=== PATIENT | female | born 1970 | race Caucasian/White ===

== ENCOUNTER 2016-08-21 07:00 | Day surgery (SDC) | payer BC, OTHER ==
[2016-08-17 10:38] VITALS: BMI 25.0
[2016-08-21] MEDS ORDERED: CEFAZOLIN 2 GM in DEXTROSE 5%-WATER - 100 ML IVPB ONE (08:36)
--- NOTE | 2016-08-21 08:43 | HP ---
Past Medical History - Primary Care Physician PCP:: Gregory Lopez - Admission Chief Complaint: 45yo P0010 with menometrorrhagia and dysmenorrhea admitted for total laparoscopic hysterectomy and cystoscopy. History of Present Illness: Severe menorrhagia and dysmenorrhea, suspected adenomyosis. 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: Alzheimer's, CVA, Dementia, Migraine, Multiple Sclerosis, Peripheral Neuropathy, Parkinson's, Seizure, Syncope, TIA, Vertigo, Other Cardiovascular: No: AFIB, Aneurysm, Aortic Insufficiency, Aortic Stenosis, CAD, CHF, Deep Vein Thrombosis, HTN, Hyperlipdemia, [place], Mitral Insufficiency, Mitral Stenosis, Murmur, Pulmonary Hypertension, Other Pulmonary: No: Asthma, Bronchitis, Cancer, COPD, O2 Dependent, Pneumonia, Previously Intubated, Pulmonary Embolus, Pulmonary Fibrosis, Sleep Apnea, Other Gastrointestinal: No: Ascites, Cancer, Constipation, Crohn's Disease, Diverticulitis, Diverticulosis, Esophageal Varices, Gastritis, GERD, GI Bleed, Hemorrhoids, Hiatal Hernia, Inflamatory Bowel Disease, Irritable Bowel Disease, Pancreatitis, Peptic Ulcer Disease, Ulcerative Colitis, Other Hepatobiliary: No: Cirrhosis, Cholelithiasis, Cholecystitis, Choledocholithiasis , Hepatitis A, Hepatitis B, Hepatitis C, Other Renal/: No: Renal Failure, Renal Inusuff, BPH, Cancer, Hematuria, Hemodialysis , Neurogenic Bladder, Renal Calculi, UTI, Other Reproductive: Yes: Other (adenomyosis) ...: 1 ...Para: 0 ...Induced : 1 Heme/Onc: Yes: Anemia Infectious Disease: No: AIDS, C-Diff, Herpes Zoster, HIV, MRSA, STD's, Tuberculosis, VREF, Other Psych: No: Addictions, Anxiety, Bipolar, Depression, Panic, Psychosis, Schizophrenia, Other Musculoskeletal: No: Bursitis, Chronic low back pain, Hemiparesis, Hemiplegia, Osteoarthritis, Paraplegia, Other Rheumatology: No: Fibromyalgia, Gout, Lupus, Rheumatoid Arthritis, Sarcoidosis, Vasculitis, Other ENT: No: Allergic Rhinitis, Sinusitis, Other Endocrine: No: Bosque's Disease, Meliza's Disease, Diabetes Insipidus, Diabetes Mellitus, Hyperparathyroidism, Hyperthyroidism, Hypothyroidism, Osteopenia, SIADH, Other Dermatology: No: Basal Cell, Cellulitis, Eczema, Melanoma, Psoriasis, Squamous Cell, Other - Past Surgical History Past Surgical History: Yes: Cholecystectomy Hx Myomectomy: No Hx Transabdominal Cerclage: No - Advance Directives Advance Directives: Yes: Health Care Proxy - Smoking History Smoking history: Former smoker Have you smoked in the past 12 months: No If you are a former smoker, when did you quit?: 3YRS - Alcohol/Substance Use Hx Alcohol Use: Yes (OCC) History of Substance Use: reports: None - Social History Usual Living Arrangement: Yes: With Spouse, With Significant Other ADL: Independent History of Recent Travel: No Home Medications - Allergies Allergies/Adverse Reactions: Allergies Allergy/AdvReac Type Severity Reaction Status Date / Time No Known Allergies Allergy Verified 08/21/16 07:56 - Home Medications Home Medications: Ambulatory Orders NK [No Known Home Medication] 08/17/16 Family Disease History - Family Disease History Family History: Denies Review of Systems - Review of Systems Constitutional: reports: No Symptoms Eyes: reports: No Symptoms HENT: reports: No Symptoms Neck: reports: No Symptoms Cardiovascular: reports: No Symptoms Respiratory: reports: No Symptoms Gastrointestinal: reports: No Symptoms Genitourinary: reports: No Symptoms Breasts: reports: No Symptoms Reported Musculoskeletal: reports: No Symptoms Integumentary: reports: No Symptoms Neurological: reports: No Symptoms Endocrine: reports: No Symptoms Hematology/Lymphatic: reports: No Symptoms Psychiatric: reports: No Symptoms Pain Intensity: 0 Physical Exam-LOT WORKER Vital Signs: Vital Signs Temperature 98.2 F 08/21/16 07:54 Pulse Rate 67 08/21/16 07:54 Respiratory Rate 16 08/21/16 07:54 Blood Pressure 114/64 08/21/16 07:54 O2 Sat by Pulse Oximetry (%) 98 08/21/16 07:43 Constitutional: Yes: Well Nourished, No Distress, Calm Eyes: Yes: WNL, Conjunctiva Clear HENT: Yes: WNL, Atraumatic, Normocephalic Neck: Yes: WNL, Supple, Trachea Midline Cardiovascular: Yes: WNL, Regular Rate and Rhythm Respiratory: Yes: WNL, Regular, CTA Bilaterally Gastrointestinal: Yes: WNL, Normal Bowel Sounds, Soft ...Rectal Exam: Yes: Deferred Renal/: Yes: WNL Pelvis: Yes: WNL External Genitalia: Yes: Normal Internal Exam Deferred: No Vaginal Exam: Yes: Normal Cervix: Yes: Normal Uterus: Yes: Enlarged Adnexa: Normal: Left, Right Musculoskeletal: Yes: WNL Extremities: Yes: WNL Edema: No Integumentary: Yes: WNL Neurological: Yes: WNL, Alert, Oriented ...Motor Strength: WNL Psychiatric: Yes: WNL, Alert, Oriented Imaging - Results Ultrasound: Report Reviewed Assessment/Plan 45yo P0010 with menometrorrhagia and dysmenorrhea admitted for total laparoscopic hysterectomy and cystoscopy. The pt requested ovarian preservation. . We had discussed the risks, benefits, alternatives of surgery at length including but not limited to infection, bleeding, scarring, perforation, amenorrhea, infertility, injury to surrounding/underlying organs or structure, need for additional surgery to repair/treat any complications, etc. The patient verbalized understanding and requested to proceed with surgery. I emphasized that all surgeries have risks and no guarantees can be provided.
[2016-08-21] MEDS ORDERED: ceFAZolin SODIUM 1 GM VIAL IVPB ONE (09:13)
[2016-08-21] MEDS ORDERED: IBUPROFEN 600 MG TABLET (FP) PO PRN (11:15)
[2016-08-21] MEDS ORDERED: ACETAMINOPHEN 325 MG TABLET (FP) PO PRN (11:15)
[2016-08-21] MEDS ORDERED: oxyCODONE HCL 5 MG TABLET PO PRN (11:17)
[2016-08-21] MEDS ORDERED: DOCUSATE SODIUM 100 MG CAPSULE (FP) PO PRN (11:17)
--- NOTE | 2016-08-21 11:21 | OP ---
Operative Note - Note: Operative Date: 08/21/16 Pre-Operative Diagnosis: Menometrorrhagia, dysmenorrhea Operation: TLH, b/l salpingectomy, cystoscopy Findings: Normal uterus, ovaries, bladder Post-Operative Diagnosis: Same as Pre-op Surgeon: Gregory Lopez Buyers' Agent: Cynthia Baeza Anesthesiologist/MANAGER UTILITIES: Minerva Pack Anesthesia: General Specimens Removed: Uterus, B/L Fallopian tubes Estimated Blood Loss (mls): 20 Drains & Tubes with Location: Schrader Catheter Drains, Volume Out (mls): 250 Blood Volume Replaced (mls): 0 Fluid Volume Replaced (mls): 1,500 Operative Report Dictated: Yes
[2016-08-21] MEDS ORDERED: ONDANSETRON 4 MG/2 ML VIAL IVPUSH PRN (11:24)
[2016-08-21] MEDS ORDERED: MEPERIDINE HCL CARPU-JECT 25 MG/1 ML DISP.SYRIN IVPUSH ONE (11:24)
[2016-08-21] MEDS ORDERED: LACTATED RINGERS SOLUTION 1,000 ML IV SCH (11:30)
--- NOTE | 2016-08-21 11:58 | OP ---
DATE OF OPERATION: 08/21/2016 PREOPERATIVE DIAGNOSIS: Menometrorrhagia, dysmenorrhea. POSTOPERATIVE DIAGNOSIS: Menometrorrhagia, dysmenorrhea. PROCEDURE: Total laparoscopic hysterectomy, bilateral salpingectomy, cystoscopy. SURGEON: Gregory Lopez MD FLOWER GRADER: Cynthia Baeza MD ANESTHESIOLOGIST: Minerva Pack MD ANESTHESIA: General endotracheal. COMPLICATIONS: None. ESTIMATED BLOOD LOSS: 20 mL. URINE OUTPUT: 250 mL of clear urine at the end of the procedure. IV FLUIDS: 1500 mL of crystalloids. PATHOLOGY: Uterus and cervix with bilateral fallopian tubes. FINDINGS: Examination under anesthesia revealed a small anteverted uterus with no pelvic or adnexal masses. Laparoscopy revealed a normal-appearing, anteverted uterus with normal ovaries bilateral and normal fallopian tubes bilaterally. Cystoscopy was performed at the end of the procedure and revealed a normal intact bladder with bilateral urine jets visualized. DESCRIPTION OF PROCEDURE: The patient was met preoperatively. Risks, benefits, and alternatives of surgery were discussed in detail. All questions were answered. The patient was brought to the OR with the IV running. She was placed on a surgical table in the supine position. General endotracheal anesthesia was achieved without difficulty. The patient was then placed in a dorsal lithotomy position using adjustable Michael stirrups. She was examined under anesthesia with the findings as described above. The patient was then prepped and draped in the usual sterile fashion. A Schrader catheter was inserted and left the drain to gravity. A 4Cable TVare uterine manipulator was introduced into the uterus. The surgeons then regloved and proceeded with the laparoscopy. A 5-mm trocar was inserted inside the umbilicus. A second 5-mm trocar was inserted in the right lower quadrant. A third 5-mm trocar was inserted in the left lower quadrant and another 5-mm trocar was inserted in the left mid quadrant. Atraumatic placement was confirmed for all trocars. A LigaSure device was used to excise both fallopian tubes bilaterally with good hemostasis. The LigaSure was then used to cauterize and transect both utero-ovarian ligaments followed by bilateral round ligaments. Once again, good hemostasis was assured. The anterior leaf of the broad ligament was then transected using the LigaSure device medially towards the bladder bilaterally. The bladder was then dissected away from the lower uterine segment and the vaginal cuff. The bladder was reflected caudally. The posterior leaf of the broad ligament was also transected and cut medially from both sides. The uterine vessels were skeletonized, cauterized, and transected bilaterally with good hemostasis using the LigaSure device. The vaginal cuff was then incised over the VCare ring. The harmonic scalpel was used to circumferentially transect the vaginal cuff. Once this was completed, the uterus was removed from the abdomen and sent to Pathology. The vaginal cuff was closed using a 2-0 V-Lock suture beginning at the left vaginal cuff angle incorporating left uterosacral ligament and continuing all the way across the vaginal cuff to the right uterosacral ligament and the right vaginal cuff. Once this was completed, good hemostasis was confirmed. The operative site was irrigated using copious amounts of normal saline. Once the saline was aspirated, good hemostasis was confirmed. The surgeons then proceeded with the cystoscopy. A cystoscope was used to visualize the entire bladder. Both ureters were noted to be working properly. Both ureteral jets were noted. The Schrader catheter was then placed back into the bladder and left to drain to gravity. The instruments were removed from the patient. All of the incisions were closed. The patient was returned to supine position and transferred to recovery room in stable condition and awake. Zhen [id number]
--- NOTE | 2016-08-22 08:52 | PN ---
Progress Note, Physician Chief Complaint: 45 yo s/p TLH POD#1 no complains, voiding, ambulating, tolerating reg diet pain well controlled - Current Medication List Current Medications: Active Medications Acetaminophen (Tylenol -) 650 mg PO Q6H PRN PRN Reason: FEVER OR PAIN Docusate Sodium (Colace -) 100 mg PO BID PRN PRN Reason: CONSTIPATION Lactated Ringer's (Lactated Ringers Solution) 1,000 mls @ 75 mls/hr IV ASDIR LAMAR Ibuprofen (Motrin -) 600 mg PO Q6H PRN PRN Reason: PAIN Oxycodone HCl (Roxicodone -) 5 mg PO Q4H PRN PRN Reason: PAIN - Objective Vital Signs: Vital Signs Temperature 98.9 F 08/22/16 05:00 Pulse Rate 72 08/22/16 05:00 Respiratory Rate 20 08/22/16 05:00 Blood Pressure 119/73 08/22/16 05:00 O2 Sat by Pulse Oximetry (%) 97 08/21/16 12:56 Constitutional: Yes: Well Nourished Eyes: Yes: WNL HENT: Yes: WNL Neck: Yes: WNL Cardiovascular: Yes: WNL Respiratory: Yes: WNL Gastrointestinal: Yes: WNL, Normal Bowel Sounds, Soft Genitourinary: Yes: WNL Musculoskeletal: Yes: WNL Extremities: Yes: WNL Integumentary: Yes: Tattoos Wound/Incision: Yes: Clean/Dry, Steri Strips Neurological: Yes: WNL ...Motor Strength: WNL Psychiatric: Yes: WNL Assessment/Plan 45 yo s/p TLH VSS, Afibrile doing well D/C home NPV for 6 wks RTO in 2 weeks
[2016-08-22 10:13] VITALS: BP 112/71; PULSE 68; TEMP 98.5
--- NOTE | 2016-08-23 12:47 | PATH ---
Surgical Pathology Report Patient Name: POLY CHAVEZ [facility]. Rec. #: [id number] /Age/Gender: 1970 (Age: 45) / F Account: [id number] Location: AMBULATORY SURG Taken: 08/21/2016 Received: 08/21/2016 Reported: 08/23/2016 Physicians: Gregory Lopez M.D. Specimen(s) Received UTERUS, CERVIX, BILATERAL FALLOPIAN TUBES Clinical History Excessive and frequent menstruation Final Diagnosis UTERUS, CERVIX, BILATERAL FALLOPIAN TUBES, LAPAROSCOPIC HYSTERECTOMY, BILATERAL SALPINGECTOMY: CERVIX: CHRONIC CERVICITIS. ENDOMETRIUM: PROLIFERATIVE AND FOCALLY WEAKLY PROLIFERATIVE. MYOMETRIUM: ADENOMYOSIS, LEIOMYOMA (1.5 CM). UTERINE SEROSA: WITHOUT SIGNIFICANT PATHOLOGIC CHANGES. LEFT FALLOPIAN TUBE: WITHOUT SIGNIFICANT PATHOLOGIC CHANGES. RIGHT FALLOPIAN TUBE: WITHOUT SIGNIFICANT PATHOLOGIC CHANGES. Electronically Signed Jose Maria Martin M.D. Gross Description Received in formalin, labeled "uterus, cervix, bilateral fallopian tubes" is a 140 cm, 9 x 6 x 5 cm uterus with attached bilateral fallopian tubes. The ectocervical mucosa is shelton and glistening. The endocervical canal lined by shelton trabeculated mucosa. The endometrial cavity is lined by shelton-pink endometrium, up to 0.1 cm in thickness. The myometrium is shelton, trabeculated, up to 2 cm in thickness; focal 1.5 cm in greatest dimension shelton-white nodule with whorled cut surface is identified. The uterine serosa appears focally hemorrhagic. The left fimbriated fallopian tube is 8.5 x 0.5 cm, shelton-pink and smooth. Sectioning reveals a pinpoint lumen. The right fimbriated fallopian tube is 8.0 x 0.5 cm, shelton-pink and smooth. Manager Business Process sections submitted as follows: Cassette #1: posterior cervix, cassette #2: anterior cervix, cassettes #3 and 4: anterior endomyometrium; cassettes #5 and 6: posterior endomyometrium; cassettes #7: fibroid nodule; cassette #8: sections of the left fallopian tube; cassettes #9: sections of the right fallopian tube. AF/08/21/2016 final/08/21/2016
== END 2016-08-22 10:15 | disposition home or self-care (01) ==
LOC: JASUSAT 07:00 → EDSTATUS 10:00 → J3W 13:07 → JASUSAT 08-22 10:15
PROVIDERS: ATTEND Obstetrics & Gynecology
PROC: 0UT74ZZ Resection of Bilateral Fallopian Tubes, Percutaneous Endoscopic Approach (ICD-10-PCS; 2016-08-21)
PROC: 0UT94ZZ Resection of Uterus, Percutaneous Endoscopic Approach (ICD-10-PCS; principal; 2016-08-21 09:00)
DX: N92.1 Excessive and frequent menstruation with irregular cycle (principal); N94.6 Dysmenorrhea, unspecified
CPT/HCPCS: 84703; 88307-TC; 94010; 94760